=== PATIENT | female | born 1985 | race Caucasian/White ===

== ENCOUNTER → 2018-09-15 | Outpatient (CLI) | payer OTHER ==
[~2018-09-15] MED LIST: PREN1TAB79 PO
== END | disposition home or self-care (01) ==
LOC: LAB 13:55
PROVIDERS: ATTEND Obstetrics & Gynecology
DX: O20.0 Threatened abortion (principal)
CPT/HCPCS: 36415; 84702

== ENCOUNTER 2018-09-24 12:34 | Day surgery (SDC) | payer OTHER ==
[~2018-09-24] VITALS: Ht 172.7 cm; Wt 115.2 kg
[2018-09-24] VITALS (7 sets, daily range): BP systolic 105–133; BP diastolic 55–68
[~2018-09-24 12:34] MED LIST changes: +cefotetan 2gm/isosm dext IVPB 50 ML IV ONE
[2018-09-24 13:24] LABS: BASOPHILS % (AUTO) 0.2 % (0-1); EOSINOPHILS # (AUTO) 0.1 X10'3 (0-0.9); EOSINOPHILS % (AUTO) 0.8 % (0-6); HEMATOCRIT 38.2 % (35.0-45.0); LYMPHOCYTES % (AUTO) 28.6 % (21-51); MEAN CORPUSCULAR HGB CONC 34.1 g/dL (33.0-36.5); MEAN CORPUSCULAR VOLUME 85.1 FL (78-98); MEAN PLATELET VOLUME 8.3 FL (7.4-10.4); MONOCYTES # (AUTO) 0.3 X10'3 (0-0.9); MONOCYTES % (AUTO) 4.9 % (2-12); NEUTROPHILS # (AUTO) 4.6 X10'3 (1.8-7.7); NEUTROPHILS % (AUTO) 65.5 % (42-75); PLATELET COUNT 245 X10'3 (140-440); RED BLOOD COUNT 4.49 X10'6 (4.20-5.60); RED CELL DISTRIBUTION WIDTH 12.5 % (11.5-14.5)
[2018-09-24 13:34] LABS: ALANINE AMINOTRANSFERASE 56 U/L (12-78); ALBUMIN 3.3 G/DL (3.4-5.0); ALBUMIN/GLOBULIN RATIO 0.9 (1.1-1.5); ALKALINE PHOSPHATASE 59 IU/L (46-116); ANION GAP 10 (8-16); ASPARTATE AMINO TRANSFERASE 25 U/L (10-37); BILIRUBIN,TOTAL 0.4 MG/DL (0.1-1.0); BLOOD UREA NITROGEN 6 MG/DL (7-18); BUN/CREATININE RATIO 11.1 (6.6-38.0); CHLORIDE 103 MMOL/L (99-107); CREATININE 0.54 MG/DL (0.40-0.90); GLUCOSE 75 MG/DL (70-104); POTASSIUM 3.2 MMOL/L (3.5-5.1); SODIUM 138 MMOL/L (135-145); TOTAL CARBON DIOXIDE 25.1 MMOL/L (24-32); TOTAL PROTEIN 7.1 G/DL (6.4-8.2); eGFR > 90 ML/MIN
[2018-09-24] MEDS ORDERED: FOLI0.4T2 PO (13:45)
[2018-09-24] MEDS ORDERED: CYAN-19 PO (13:45)
[2018-09-24] MEDS ORDERED: PYRI50TA10 PO (13:45)
[2018-09-24] MEDS ORDERED: PROG100C6 VG (13:45)
[2018-09-24] MEDS ORDERED: ASPI81TA52 PO (13:45)
[2018-09-24] MEDS ORDERED: midazolam 2 mg/2 ml injection ONE (14:49)
[2018-09-24] MEDS ORDERED: propofol 10mg/ml 20ml vial IV ONE (14:51)
[2018-09-24] MEDS ORDERED: sevoflurane 250ml liquid IH ONE (14:51)
[2018-09-24] MEDS ORDERED: fentaNYL/PF 50MCG/1 ML 2ML syringe ONE (14:53)
[2018-09-24] MEDS ORDERED: methylergonovine maleate 0.2mg/ml amp ONE (15:14)
[2018-09-24] MEDS ORDERED: oxyCODONE/APAP 5-325mg tablet PO ONE (15:30)
--- NOTE | 2018-09-24 15:35 | NUR ---
Received from OR via BED , accompanied by Anesthesiologist NINA and report given by Anesthesiolgist. PATIENT WAKING UP, DENIES PAIN, V/S WNL, CSM INTACT, 20G PIV RUE, PERIPAD WITH SCANT DRAINAGE.
[2018-09-24] MEDS ORDERED: ringers solution, lacted 1,000 ML IV SCH (15:38)
[2018-09-24] MEDS ORDERED: ketorolac trometh. 30mg/ml inj. IV ONE (15:40)
[2018-09-24] MEDS ORDERED: morphine 4 MG/ML inj SYRINge IV PRN ×2 (15:40)
[2018-09-24] MEDS ORDERED: meperidine/PF 25mg/ml syringe IV PRN ×3 (15:40)
[2018-09-24] MEDS ORDERED: proCHLORperazine 10 MG/2 ml inj IV PRN (15:40)
[2018-09-24] MEDS ORDERED: ondansetron/PF 4mg/2ml inj IV PRN (15:40)
--- NOTE | 2018-09-24 16:25 | NUR ---
PATIENT A&OX4, DENIES PAIN, V/S WNL, SCD OFF, PIV D/C, PERIPAD CHANGED WITH MILD TO MODERATE DRAINAGE TO OLD ONE, I HAVE REVIEWED D/C INSTRUCTIONS WITH PATIENT AND FAMILY AND THEY HAVE VERBALIZED UNDERSTANDING. PATIENT D/C HOME WITH ALL BELONGINGS AND GAVE TRANSPORT.
[2018-09-25] MEDS ORDERED: ringers solution, lacted 1,000 ML IV SCH (05:00)
[2018-09-25] MEDS ORDERED: famotidine 20mg tablet PO ONE (05:30)
== END 2018-09-24 16:25 | disposition home or self-care (01) ==
LOC: PAS 12:34
PROVIDERS: ATTEND Obstetrics & Gynecology
DX: O02.1 Missed abortion (principal); Z3A.10 10 weeks gestation of pregnancy; Z98.890 Other specified postprocedural states
CPT/HCPCS: 36415; 59820; 80053; 85025; 86885; 86900; 86901; A6255; J2210; J2250; J2704; J3010; J7120

== ENCOUNTER 2019-02-21 11:21 | Outpatient (CLI) | payer OTHER ==
[~2019-02-21 11:21] MED LIST changes: +ASPI81TA52 PO; +CYAN-51 PO; +FOLI0.4T2 PO; +PROG100C11 VG; +PYRI50TA13 PO; -cefotetan 2gm/isosm dext IVPB 50 ML IV ONE
== END 2019-02-21 23:59 | disposition home or self-care (01) ==
LOC: RAD 11:21
PROVIDERS: ATTEND Ophthalmology
DX: M19.072 Primary osteoarthritis, left ankle and foot (principal); M77.32 Calcaneal spur, left foot; W19.XXXA Unspecified fall, initial encounter; Y93.89 Activity, other specified; Y92.89 Other specified places as the place of occurrence of the external cause; Y99.8 Other external cause status
CPT/HCPCS: 73630

== ENCOUNTER 2020-06-15 09:50 | Outpatient (CLI) | payer OTHER ==
[2020-06-15 10:26] LABS: HEMOGLOBIN 13.5 g/dl (12.0-16.0); RED CELL DISTRIBUTION WIDTH 12.9 % (11.5-14.5); WHITE BLOOD COUNT 4.8 X10'3 (4.5-11.0)
[2020-06-15 10:28] LABS: BASOPHILS % (AUTO) 0.3 % (0-1); EOSINOPHILS # (AUTO) 0.1 X10'3 (0-0.9); EOSINOPHILS % (AUTO) 1.6 % (0-6); HEMATOCRIT 39.9 % (35.0-45.0); LYMPHOCYTES # (AUTO) 1.9 X10'3 (1.1-4.8); LYMPHOCYTES % (AUTO) 39.9 % (21-51); MEAN CORPUSCULAR HEMOGLOBIN 28.6 PG (27.0-31.0); MEAN CORPUSCULAR HGB CONC 33.8 g/dL (33.0-36.5); MEAN CORPUSCULAR VOLUME 84.7 FL (78-98); MEAN PLATELET VOLUME 8.3 FL (7.4-10.4); MONOCYTES # (AUTO) 0.3 X10'3 (0-0.9); MONOCYTES % (AUTO) 5.8 % (2-12); NEUTROPHILS # (AUTO) 2.5 X10'3 (1.8-7.7); NEUTROPHILS % (AUTO) 52.4 % (42-75); PLATELET COUNT 266 X10'3 (140-440); RED BLOOD COUNT 4.71 X10'6 (4.20-5.60)
[2020-06-15 10:32] LABS: CLARITY,URINE SLIGHTLY CLOUDY (Clear); COLOR,URINE STRAW (Yellow); GLUCOSE, URINE NEGATIVE (Neg); KETONES,URINE NEGATIVE (Neg); LEUKOCYTE ESTERASE ,URINE NEGATIVE (Neg); NITRITES, URINE NEGATIVE (Neg); OCCULT BLOOD,URINE NEGATIVE (Neg); PROTEIN,URINE NEGATIVE (Neg); UA COLLECTION TYPE CLN CATCH MIDSTREAM; UROBILINOGEN,URINE 0.2 E.U/dL (0.2-1.0)
[2020-06-15 10:41] LABS: MUCUS STRANDS FEW /LPF (Neg); SQUAMOUS EPITHELIAL CELL,UR MODERATE /LPF (FEW)
[2020-06-15 10:42] LABS: BACTERIA,URINE 2+ /HPF (Neg); RBC,URINE 0-2 /HPF (0-2); WBC,URINE 0-4 /HPF (0-4)
[2020-06-15 10:51] LABS: ALANINE AMINOTRANSFERASE 37 U/L (12-78); ALBUMIN 3.7 G/DL (3.4-5.0); ALKALINE PHOSPHATASE 63 IU/L (46-116); ANION GAP 5 (8-16); ASPARTATE AMINO TRANSFERASE 23 U/L (10-37); BILIRUBIN,TOTAL 0.3 MG/DL (0.1-1.0); BLOOD UREA NITROGEN 6 MG/DL (7-18); BUN/CREATININE RATIO 9.7 (6.6-38.0); CALCIUM 9.3 MG/DL (8.5-10.1); CHLORIDE 103 MMOL/L (99-107); CHOL/HDL RATIO 2.6 (0.00-4.99); CHOLESTEROL 177 MG/DL (0-200); CREATININE 0.62 MG/DL (0.40-0.90); GLUCOSE 94 MG/DL (70-104); HDL CHOLESTEROL 67 MG/DL (35-60); LDL CHOLESTEROL 97 MG/DL (50-100); POTASSIUM 3.9 MMOL/L (3.5-5.1); SODIUM 138 MMOL/L (135-145); TOTAL CARBON DIOXIDE 29.7 MMOL/L (24-32); TOTAL PROTEIN 7.5 G/DL (6.4-8.2); TRIGLYCERIDES 37 MG/DL (20-135); eGFR > 90 ML/MIN
== END 2020-06-15 23:59 | disposition home or self-care (01) ==
LOC: LAB 09:50
PROVIDERS: ATTEND Surgery
DX: Z00.00 Encounter for general adult medical examination without abnormal findings (principal)
CPT/HCPCS: 36415; 80053; 80061; 81001; 84439; 84443; 85025

== ENCOUNTER 2020-10-26 09:25 | Outpatient (CLI) | payer BC ==
[~2020-10-26 09:25] MED LIST changes: -FOLI0.4T2 PO; +FOLI0.4T6 PO; +PYRI-3 PO; -PYRI50TA13 PO
[2020-10-26 10:24] LABS: BASOPHILS % (AUTO) 0.2 % (0-1); EOSINOPHILS # (AUTO) 0.1 X10'3 (0-0.9); EOSINOPHILS % (AUTO) 0.9 % (0-6); HEMATOCRIT 37.9 % (35.0-45.0); HEMOGLOBIN 12.5 g/dl (12.0-16.0); LYMPHOCYTES # (AUTO) 1.8 X10'3 (1.1-4.8); LYMPHOCYTES % (AUTO) 25.3 % (21-51); MEAN CORPUSCULAR HEMOGLOBIN 28.4 PG (27.0-31.0); MEAN CORPUSCULAR HGB CONC 33.1 g/dL (33.0-36.5); MEAN CORPUSCULAR VOLUME 85.8 FL (78-98); MEAN PLATELET VOLUME 8.4 FL (7.4-10.4); MONOCYTES # (AUTO) 0.4 X10'3 (0-0.9); NEUTROPHILS # (AUTO) 4.8 X10'3 (1.8-7.7); NEUTROPHILS % (AUTO) 67.6 % (42-75); PLATELET COUNT 218 X10'3 (140-440); RED BLOOD COUNT 4.41 X10'6 (4.20-5.60); WHITE BLOOD COUNT 7.1 X10'3 (4.5-11.0)
[2020-10-26 10:28] LABS: CLARITY,URINE SLIGHTLY CLOUDY (Clear); COLOR,URINE STRAW (Yellow); GLUCOSE, URINE NEGATIVE (Neg); KETONES,URINE NEGATIVE (Neg); LEUKOCYTE ESTERASE ,URINE NEGATIVE (Neg); NITRITES, URINE NEGATIVE (Neg); OCCULT BLOOD,URINE NEGATIVE (Neg); PH,URINE 6.5 (4.8-8.0); PROTEIN,URINE NEGATIVE (Neg); UROBILINOGEN,URINE 0.2 E.U/dL (0.2-1.0)
[2020-10-26 10:31] LABS: UA COLLECTION TYPE CLN CATCH MIDSTREAM
[2020-10-26 10:35] LABS: BACTERIA,URINE 3+ /HPF (Neg); MUCUS STRANDS FEW /LPF (Neg); SQUAMOUS EPITHELIAL CELL,UR MANY /LPF (FEW)
[2020-10-26 10:36] LABS: RBC,URINE 0-2 /HPF (0-2); WBC,URINE 0-4 /HPF (0-4)
[2020-10-26 12:05] LABS: HIV ANTIBODY 1&2 RAPID NON-REACTIVE (Neg)
[2020-10-27 13:09] LABS: HBSAG SCREEN Negative (Negative); HEPATITIS C ANTIBODY <0.1 s/co ratio (0.0-0.9); RUBELLA ANTIBODIES, IGG <0.90 index (Immune >0.99)
== END 2020-10-26 23:59 | disposition home or self-care (01) ==
LOC: LAB 09:25
PROVIDERS: ATTEND Obstetrics & Gynecology
DX: Z34.81 Encounter for supervision of other normal pregnancy, first trimester (principal)
CPT/HCPCS: 36415; 81001; 83036; 85025; 86592; 86703; 86762; 86803; 86885; 86900; 86901; 87340

== ENCOUNTER 2023-06-23 10:00 | Outpatient (CLI) | payer BC ==
[~2023-06-23 10:00] MED LIST changes: +CYAN-104 PO; -CYAN-51 PO
== END 2023-06-23 23:59 | disposition home or self-care (01) ==
LOC: RAD 10:00
PROVIDERS: ATTEND Physician Assistant
DX: M79.671 Pain in right foot (principal)
CPT/HCPCS: 73610; 73630

== ENCOUNTER 2023-08-17 08:38 | Outpatient (CLI) | payer BC | END 2023-08-17 23:59 | disposition home or self-care (01) | LOC: RAD 08:38 | PROVIDERS: ATTEND Physician Assistant | DX: S92.224A Nondisplaced fracture of lateral cuneiform of right foot, initial encounter for closed fracture (principal); S93.491A Sprain of other ligament of right ankle, initial encounter; M72.2 Plantar fascial fibromatosis; M77.31 Calcaneal spur, right foot; M79.671 Pain in right foot; X58.XXXA Exposure to other specified factors, initial encounter; Y93.89 Activity, other specified; Y92.89 Other specified places as the place of occurrence of the external cause; Y99.8 Other external cause status | CPT/HCPCS: 73718; 73721 ==

== ENCOUNTER 2025-05-04 21:14 | Emergency (ER) | payer BC ==
[~2025-05-04] VITALS: Ht 170.2 cm; Wt 100.0 kg
[2025-05-04 21:39] LABS: MEAN PLATELET VOLUME 8.4 FL (7.4-10.4); RED CELL DISTRIBUTION WIDTH 15.0 % (11.5-14.5)
[2025-05-04 21:54] LABS: CREATININE 0.64 MG/DL (0.40-0.90); TOTAL CARBON DIOXIDE 27.8 MMOL/L (24-32); eCRCL 112 ML/MIN; eGFR > 90 ML/MIN
[2025-05-04] MEDS: oxyCODONE/APAP 5-325mg tablet PO ONE (22:29)
[2025-05-04 22:40] LABS: URINE HCG NEGATIVE (NEG)
[2025-05-04 22:43] LABS: LEUKOCYTE ESTERASE ,URINE NEGATIVE (Neg); NITRITES, URINE NEGATIVE (Neg); OCCULT BLOOD,URINE NEGATIVE (Neg); UA COLLECTION TYPE NON-SPECIFIED
[2025-05-04] MEDS ORDERED: PER5325T PO (23:29)
[2025-05-04] MEDS ORDERED: ONDA-243 PO (23:29)
--- NOTE | 2025-05-04 23:30 | Physician Documentation ---
History of Present Illness Chief Complaint: Abdominal Pain Stated Complaint: ABD PAIN Time Seen by MD: 22:16 Primary Medical Doctor: NONE, OB-WINSOME Mode of Arrival: POV, Ambulatory HPI 40 year old female with severe RUQ pain since early this morning, made worse by eating (though she hasn't eaten much today), radiating around to her R flank. She has never experienced this before. She reports nausea, but no diarrhea or urinary symptoms. Medication Reconciliation Allergies: Coded Allergies: hydrocodone (Verified Allergy, Unknown, 05/04/25) Scheduled Aspirin (Aspirin EC), 1 TABLET PO DAILY, (Reported) Cyanocobalamin (Vitamin B-12), Unknown Dose PO DAILY, (Reported) Folic Acid* (Folic Acid*), 1 TAB PO DAILY, (Reported) Vits W-Ca,Fe,FA(<1Mg) ( Vitamins), 1 TABLET PO DAILY, (Reported) Progesterone,Micronized (Progesterone), 200 MG VG HS, (Reported) Pyridoxine Hcl (Vitamin B-6), Unknown Dose PO DAILY, (Reported) Past Medical History Past Medical History: No Pertinent History Past Surgical History: Smoking Status: Never smoker Drug Use: none Lives with: Spouse Lives In: Home Review of Systems All Other Systems at this time: Reviewed and Negative Physical Exam Vital Signs: RN Vital Signs have been reviewed: Yes, Temperature: 98.0, Source: Oral, Heart Rate: 80, Respiratory Rate: 18, BP: 129/56, Pulse Oximetry: 99, Weight: 100.000 Physical Exam HEENT: PERRL, moist oral mucosa, EOMI Pulmonary: No respiratory distress Cardiac: RRR, no murmur, rub or gallop GI: nondistended, soft, +TTP RUQ with +salazar's sign, no guarding, no rebound MSK: no deformity Skin: w/d/i, no rash Neuro: alert, nonfocal Psych: normal affect Progress Results/Orders Results/Orders Orders - SUDEEP SHEPARD MD Ultrasound Of Abdomen (05/04/25 ) Completed Orders - SUDEEP SHEPARD MD Urinalysis, Cult If Indicated (05/04/25 21:24) Hcg, Ur Ql (05/04/25 21:24) Cbc/Diff (05/04/25 21:24) BMP (05/04/25 21:24) Lipase (05/04/25 21:24) CMP (05/04/25 21:24) Oxycodone/Acetaminophen Tablet (Percocet (05/04/25 22:25) Medications Received in ER Medications (Trade) Dose Ordered Sig/Larry Route PRN Reason Start Time Stop Time Status Last Admin Dose Admin (Percocet 5-325mg tab) 1 tab ONCE ONCE PO 05/04/25 22:25 05/04/25 22:26 DC 05/04/25 22:29 1 TAB Vital Signs 05/04/25 05/04/25 05/04/25 05/04/25 21:17 22:29 22:40 23:17 Temp 98.0 Pulse 80 Resp 18 15 18 18 B/P (MAP) 129/56 Pulse Ox 99 Laboratory Tests Test 05/04/25 21:22 05/04/25 21:32 Urine Specimen Description Non-specified Urine Color Yellow Urine Clarity Clear Urine pH 7.0 Urine Specific [place] 1.010 Urine Protein Negative Urine Glucose (UA) Negative Urine Ketones Negative Urine Occult Blood Negative Urine Nitrite Negative Urine Bilirubin Negative Urine Urobilinogen 0.2 Urine Leukocyte Esterase Negative Urine Culture Indicated Not ind Volume Urine Centrifuged 10 ml Urine HCG, Qualitative Negative Urine Comment White Blood Count 6.3 Red Blood Count 4.35 Hemoglobin 10.9 L Hematocrit 33.2 L Mean Corpuscular Volume 76.4 L Mean Corpuscular Hemoglobin 25.0 L Mean Corpuscular Hemoglobin Concent 32.7 L Red Cell Distribution Width 15.0 H Platelet Count 313 Mean Platelet Volume 8.4 Neutrophils (%) (Auto) 66.0 Lymphocytes (%) (Auto) 25.8 Monocytes (%) (Auto) 6.1 Eosinophils (%) (Auto) 1.7 Basophils (%) (Auto) 0.4 Neutrophils # (Auto) 4.1 Lymphocytes # (Auto) 1.6 Monocytes # (Auto) 0.4 Eosinophils # (Auto) 0.1 Basophils # (Auto) 0.0 CBC Comment Sodium Level 137 Potassium Level 3.4 L Chloride Level 104 Carbon Dioxide Level 27.8 Anion Gap 5 L Blood Urea Nitrogen 9 Creatinine 0.64 Estimated GFR/1.73 m2 > 90 BUN/Creatinine Ratio 14.1 Glucose Level 98 Calcium Level 8.3 L Total Bilirubin 0.3 Aspartate Amino Transf (AST/SGOT) 18 Alanine Aminotransferase (ALT/SGPT) 20 Alkaline Phosphatase 54 Total Protein 6.9 Albumin 3.3 L Globulin 3.6 Albumin/Globulin Ratio 0.9 L Lipase 30 Chemistry Comments Medical Decision Making Additional information obtaine: family Findings 40 year old female with likely biliary pathology given presentation, age, sex. Labs largely unremarkable, US demonstrated gallstone without PCCF or thickened wall, but enlarged CBD. Counseled patient that this is a first episode of bili lizette colic and that she should expect to need her gallbladder removed soon. Counseled to follow up with PCP and home with medications. Return precautions. Differential Dx:Considerations: Other Additional Comments DDx = biliary colic, cholecystitis, pancreatitis, pyelonephritis, UTI, kidney stone Departure Disposition: HOME / SELF CARE / HOMELESS Impression: Primary Impression: Biliary colic Condition: Stable Discharge Instructions: Cholelithiasis Referrals: NO PRIMARY CARE PROVIDER (PCP) Prescriptions Oxycodone Hcl/Acetaminophen 5/325 MG* (Percocet 5/325 MG*) 5 Mg/325 Mg Tablet 1 TAB PO TID PRN PRN for pain for 5 Days, #15 TAB Prov: SUDEEP SHEPARD MD 05/04/25 ONDANSETRON ODT 4mg tablet (ONDANSETRON ODT) 4 Mg Tab.rapdis 1 TAB PO Q6H PRN PRN for nausea/vomiting for 4 Days, #16 TAB 0 Refills Prov: SUDEEP SHEPARD MD 05/04/25 Education Educated: Patient, Family Educated regarding: diagnosis, treatment, prognosis, need for follow up Signature Scribe Signature: . Attestation: . SUDEEP SHEPARD MD May 04, 2025 23:30
--- NOTE | 2025-05-04 23:48 | RADIOLOGY REPORT ---
INDICATION: RUQ pain TECHNIQUE: Multiple real-time sonographic images of the abdomen were obtained. COMPARISON: None FINDINGS: Liver is homogenous in echogenicity. The liver measures 14.6 cm. No intrahepatic biliary ductal dilatation is noted. Gallstone in the gallbladder. No dens distention, wall thickening, or surrounding inflammatory changes. The common duct measures 0.8 cm and is unremarkable. The right kidney measures 10.4 cm. No hydronephrosis. The pancreas is not well visualized due to obscuration from bowel gas. The visualized portions of the IVC and aorta are grossly unremarkable. IMPRESSION: Gallstone without acute cholecystitis..
[2025-05-05] MEDS: oxyCODONE/APAP 5-325mg tablet PO ONE (00:06)
[2025-05-05 00:09] VITALS: BP 132/84; PULSE 78; RESP 14; TEMP 97.8; O2SAT 99
== END 2025-05-05 00:12 | disposition home or self-care (01) ==
LOC: ER 21:14
DX: K80.50 Calculus of bile duct without cholangitis or cholecystitis without obstruction (principal); Z88.5 Allergy status to narcotic agent; Z79.82 Long term (current) use of aspirin; Z79.899 Other long term (current) drug therapy; Z98.890 Other specified postprocedural states
CPT/HCPCS: 36415; 76700; 80053; 81003; 81025; 83690; 85025; 99284